=== PATIENT | female | born 1970 | race Caucasian/White ===

== ENCOUNTER 2017-08-13 14:51 | Emergency (ER) | payer OTHER ==
[2017-08-13] MEDS ORDERED: Adacel Vial IM ONE (15:54)
[2017-08-13] MEDS ORDERED: TENIVAC VIAL IM ONE (16:05)
--- NOTE | 2017-08-13 16:07 | ERPHSYRPT ---
- History of Present Illness Time Seen by Provider: 08/13/17 15:34 Source: patient Patient Subjective Stated Complaint: Pt states "I got a dirty needle stick on my finger." Triage Nursing Assessment: Pt alert and oriented X 3, skin pwd. pt ambulates without difficulty, able to speak in clear full sentences. no apparent respiratory distress. 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 She poked left index finger with a dirty used needle used for IM B 12 shot in a resident. THe resident is not knownt ohave any infectious disease but does have dementia. Patient cleansed finger well. Unsure last tetanus vaccine. Occurred at 1:30PM today. Pt had prior hep b vaccine with good titres. ILL: None LMPCurrent ALL: None Timing/Duration: today (1:30 PM) Allergies/Adverse Reactions: No Known Drug Allergies Allergy (Unverified 08/13/17 15:27) Home Medications: Escitalopram Oxalate [Lexapro] 5 mg PO DAILY 08/13/17 [History] Hx Tetanus, Diphtheria Vaccination/Date Given: Yes Hx Influenza Vaccination/Date Given: Yes Hx Pneumococcal Vaccination/Date Given: No Immunizations Up to Date: Yes - Review of Systems Constitutional: No Symptoms Musculoskeletal: Injury (needlestick left index finger) - Past Medical History Pertinent Past Medical History: Yes Other Medical History: depression - Past Surgical History Past Surgical History: Yes Other Surgical History: c section - Social History Smoking Status: Never smoker Drug Use: none Patient Lives Alone: No (Nurse at [employer] [employer]) - Female History Hx Last Menstrual Period: 08/13/2017 Hx Now: No - Nursing Vital Signs Nursing Vital Signs: Initial Vital Signs Temperature 98.3 F 08/13/17 15:15 Pulse Rate 69 08/13/17 15:15 Respiratory Rate 16 08/13/17 15:15 Blood Pressure 130/65 08/13/17 15:15 O2 Sat by Pulse Oximetry 99 08/13/17 15:15 Pain Scale Pain Intensity 0 - Physical Exam General Appearance: alert Eye Exam: PERRL/EOMI Cardiovascular Exam: regular rate/rhythm Extremity Exam: other (left thumb has small puncture wound) Neurologic Exam: alert, oriented x 3, cooperative, sensation nml, No motor deficits Skin Exam: warm, dry, No rash SpO2: 99 Oxygen Delivery: Room Air - Course Nursing assessment & vital signs reviewed: Yes Ordered Tests: Active Orders 24 hr Category Date Time Status Wound Care STAT Care 08/13/17 15:54 Active Medication Summary Discontinued Medications Generic Name Dose Route Start Last Admin Trade Name Sergio PRN Reason Stop Dose Admin Diphtheria/Tetanus/Acell Pertussis 0.5 ml 08/13/17 15:54 Adacel Vial IM 08/13/17 15:55 .ONCE ONE - Progress Progress Note: 08/13/17 16:05 Discussed needle stick with pt. Discussed risk of HIV, hep b, and hep C. Will update tetanus. MD Alberts HIV risk assessment reviewed with pt. 0.005%. Pt decided no PEP medication. Advised she have follow up serial testing for HIV, hep B, and hep C thru [facility] or her family doctor. Advised source patient should have testing today to guide treatment plans. She spoke to her employer and will have workers comp drug testing done at their behest. Wound care already done. Counseled pt/family regarding: diagnosis, need for follow-up - Departure Time of Disposition: 16:07 Departure Disposition: Home Clinical Impression: Exposure to body fluids by contaminated hypodermic needlestick Condition: Stable Critical Care Time: No Referrals: MEGAN AGEE [NON-STAFF PHY W/O PRIVILEGES] - Instructions: Blood or Body Fluid Exposure Additional Instructions: Keep wound clean and dry. Go to lab for employer drug testing. Follow up with [facility] doctor for further test results and testing schedule.
[2017-08-13 16:32] VITALS: BP 128/64; PULSE 68; O2SAT 98
[2017-08-15 03:40] LABS: HIV Antigen/Antibody Combo Non Reactive (Non Reactive)
[2017-08-15 11:09] LABS: Hepatitis B Sur Ag Screen Non Reactive (Non Reactive); Hepatitis B Surface Ab.Quant >1000.00 mIU/mL (0.00-8.49); Hepatitis C Antibody by EIA Non Reactive (Non Reactive)
== END 2017-08-13 16:32 | disposition home or self-care (01) ==
LOC: EDSTATUS 14:51 → ED 14:51
DX: Z77.21 Contact with and (suspected) exposure to potentially hazardous body fluids (principal); W46.1XXA Contact with contaminated hypodermic needle, initial encounter; Y92.129 Unspecified place in nursing home as the place of occurrence of the external cause; Y99.0 Civilian activity done for income or pay
CPT/HCPCS: 36415; 86317; 86701; 86702; 86803; 87340; 87389; 90471; 90714; 90715; 96372; 99282